=== PATIENT | female | born 1985 | race American Indian/Alaskan Native ===

== ENCOUNTER 2023-02-11 23:00 | Emergency (ER) | payer OTHER ==
[2023-02-11] MEDS ORDERED: Acetaminophen 325 MG Tab PO ONE (23:33)
[2023-02-11 23:47] VITALS: BP 132/93; PULSE 87
== END 2023-02-11 23:57 | disposition home or self-care (01) ==
LOC: DL.ED 23:00
DX: S00.83XA Contusion of other part of head, initial encounter (principal); G44.319 Acute post-traumatic headache, not intractable; Z88.0 Allergy status to penicillin; Z88.1 Allergy status to other antibiotic agents; Z88.5 Allergy status to narcotic agent; W22.09XA Striking against other stationary object, initial encounter
CPT/HCPCS: 99283; A9270

== ENCOUNTER 2025-03-18 18:51 | Emergency (ER) | payer OTHER ==
[2025-03-18 19:02] VITALS: BP 141/99; PULSE 88
[2025-03-18] MEDS: Ketorolac 30 MG/ML SDV IM ONE (19:09)
== END 2025-03-18 19:16 | disposition home or self-care (01) ==
LOC: DL.ED 18:51
DX: S29.9XXA Unspecified injury of thorax, initial encounter (principal); Z88.0 Allergy status to penicillin; Z88.5 Allergy status to narcotic agent; Z88.1 Allergy status to other antibiotic agents; Z88.8 Allergy status to other drugs, medicaments and biological substances; W22.8XXA Striking against or struck by other objects, initial encounter
CPT/HCPCS: 96372; 99283; J1885; 99282